=== PATIENT | male | born 1960 | race Caucasian/White ===

== ENCOUNTER 2021-03-21 11:42 | Emergency (ER) | payer OTHER, MEDICARE ==
[~2021-03-21] VITALS: Ht 182.9 cm; Wt 86.3 kg
[2021-03-21] MEDS ORDERED: HYDROcodone/APAP 5/325MG 1 TAB TABLET PO ONE (12:30)
--- NOTE | 2021-03-21 12:32 | PHYS DOC ---
General Adult EDM: Chief Complaint: PSYCH EVALUATION HPI: HPI: 60-year-old male presents with anxiety. Patient has a long history of and PTSD. He has brought his sertraline to but could not function on 80 mg a day. He was trying to taper himself down but quit taking the medication altogether about a week ago. For the last 4 days, he has been mostly debilitated from his anxiety. He worries all the time and just cannot function. He is not suicidal. He has feelings of worthlessness and inadequacy but this is part of his anxiety process. His only medical complaint is neck pain. He has a plate in his neck and it aches from time to time. He denies any recent falls or trauma. No change in sensation or feeling. Review of Systems: Review of Systems: Constitutional: Denies fever or chills Eyes: Denies change in visual acuity HENT: Neck pain Respiratory: Denies cough or shortness of breath Cardiovascular: Denies chest pain or edema GI: Denies abdominal pain, nausea, vomiting, bloody stools or diarrhea : Denies dysuria Musculoskeletal: Denies back pain or joint pain Integument: Denies rash Neurologic: Denies headache, focal weakness or sensory changes Endocrine: Denies polyuria or polydipsia Lymphatic: Denies swollen glands Psychiatric: anxiety Physical Exam: PE: Constitutional: Well developed, well nourished, no acute distress, non-toxic appearance. [] HENT: Normocephalic, atraumatic, bilateral external ears normal, oropharynx moist, no oral exudates, nose normal. [] Eyes: PERRLA, EOMI, conjunctiva normal, no discharge. [] Neck: Decreased range of motion, no tenderness, supple, no stridor. [] Cardiovascular: Heart rate regular rhythm, no murmur [] Lungs & Thorax: Bilateral breath sounds clear to auscultation [] Abdomen: Bowel sounds normal, soft, no tenderness, no masses, no pulsatile masses. [] Skin: Warm, dry, no erythema, no rash. [] Back: No tenderness, no CVA tenderness. [] Extremities: No tenderness, no cyanosis, no clubbing, ROM intact, no edema. [] Neurologic: Alert and oriented X 3, normal motor function, normal sensory function, no focal deficits noted. [] Psychologic: Affect anxious, judgement normal, mood depressed. [] EKG: EKG: [] Radiology/Procedures: Radiology/Procedures: [] Heart Score: C/O Chest Pain: N/A Risk Factors: Risk Factors: DM, Current or recent (<one month) smoker, HTN, HLP, family history of CAD, obesity. Risk Scores: Score 0 - 3: 2.5% MACE over next 6 weeks - Discharge Home Score 4 - 6: 20.3% MACE over next 6 weeks - Admit for Clinical Observation Score 7 - 10: 72.7% MACE over next 6 weeks - Early Invasive Strategies Course & Med Decision Making: Course & Med Decision Making Pertinent Labs and Imaging studies reviewed. (See chart for details) [] Dragon Disclaimer: Dragon Disclaimer: This electronic medical record was generated, in whole or in part, using a voice recognition dictation system. Departure Departure: Impression: Primary Impression: Anxiety Disposition: HOME / SELF CARE / HOMELESS Condition: STABLE Referrals: RE MEDLEY MD (PCP) Patient Instructions: Anxiety and Panic Attacks, [facility] Scripts Haloperidol (HALOPERIDOL) 2 Mg Tablet 1 TAB PO BID PRN for ANXIETY / AGITATION for 5 Days, #10 TAB Prov: SONIA MENDOZA DO 03/21/21 SONIA MENDOZA DO Mar 21, 2021 12:32
[2021-03-21 12:49] LABS: BARBITURATES NEG (NEG); BENZODIAZEPINES POS (NEG); CANNABINOIDS POS (NEG); COCAINE NEG (NEG); METHADONE NEG (NEG); OPIATES NEG (NEG); PHENCYCLIDINE NEG (NEG)
[2021-03-21 12:52] LABS: AMPHETAMINE/METHAMPHETAMINE NEG (NEG)
[2021-03-21] MEDS ORDERED: LORazepam 1 MG TABLET PO ONE (13:00)
[2021-03-21 13:07] LABS: BACTERIA,URINE 0 /HPF (0-FEW); BILIRUBIN,URINE NEG (NEG); CLARITY,URINE CLEAR; COLOR,URINE STRAW; GLUCOSE,URINE NEG (NEG); NITRITE,URINE NEG (NEG); UROBILINOGEN,URINE 0.2 mg/dL (0.2 mg/dL); WBC,URINE RARE /HPF (0-4)
[2021-03-21] MEDS ORDERED: HALOPERIDOL 5 MG TABLET PO ONE (13:15)
[2021-03-21 13:28] LABS: BASO % 0 % (0-3); EOS # 0.3 x10^3/uL (0.0-0.7); EOS % 5 % (0-3); HEMATOCRIT 43.7 % (39.0-53.0); HEMOGLOBIN 14.7 g/dL (13.0-17.5); LYMPH # 2.3 x10^3/uL (1.0-4.8); LYMPH % 34 % (24-48); MEAN CORPUSCULAR HEMOGLOBIN 30 pg (25-35); MEAN CORPUSCULAR HGB CONC 34 g/dL (31-37); MEAN CORPUSCULAR VOLUME 89 fL (79-100); MONO # 0.5 x10^3/uL (0.0-1.1); MONO % 8 % (0-9); NEUT # 3.5 x10^3uL (1.8-7.7); NEUT % 53 % (31-73); PLATELET COUNT 226 x10^3/uL (140-400); RED BLOOD COUNT 4.93 x10^6/uL (4.30-5.70); RED CELL DISTRIBUTION WIDTH 13.1 % (11.5-14.5); WHITE BLOOD COUNT 6.7 x10^3/uL (4.0-11.0)
[2021-03-21 13:36] LABS: CALCIUM 9.7 mg/dL (8.5-10.1); CREATININE 0.7 mg/dL (0.7-1.3); GFR 115.8; POTASSIUM 3.2 mmol/L (3.5-5.1)
[2021-03-21 13:41] LABS: ALBUMIN 4.2 g/dL (3.4-5.0); ALBUMIN/GLOBULIN RATIO 1.4 (1.0-1.7); TOTAL BILIRUBIN 0.6 mg/dL (0.2-1.0); TOTAL PROTEIN 7.1 g/dL (6.4-8.2)
[2021-03-21] MEDS ORDERED: HALO2TAB PO (14:05)
[2021-03-21 14:14] VITALS: BP 159/82
== END 2021-03-21 14:37 | disposition home or self-care (01) ==
LOC: ER 11:42
DX: F41.9 Anxiety disorder, unspecified (principal); M54.2 Cervicalgia
CPT/HCPCS: 36415; 80053; 80307; 81001; 85025; 99284

== ENCOUNTER 2021-03-21 17:28 | Emergency (ER) | payer OTHER, MEDICARE ==
[2021-03-21 14:14] VITALS: BP 159/82
[~2021-03-21 17:28] MED LIST: HALO2TAB PO
== END 2021-03-21 18:25 | disposition left against medical advice (07) ==
LOC: ER 17:28
DX: Z00.8 Encounter for other general examination (principal); Z53.21 Procedure and treatment not carried out due to patient leaving prior to being seen by health care provider